=== PATIENT | male | born 1970 | race Caucasian/White ===

== ENCOUNTER 2016-11-09 09:12 | Observation (INO) ==
[2016-11-09] MEDS ORDERED: ASPIRIN PO STA (09:19)
[2016-11-09] MEDS ORDERED: ASPIRIN ONE (09:21)
--- NOTE | 2016-11-09 09:22 | EKG Report ---
Test Performed on : 11/09/2016 09:12:31 AM Test Reason : chest pain Blood Pressure : / mmHG Vent. Rate : 082 BPM Atrial Rate : 082 BPM P-R Int : 146 ms QRS Dur : 088 ms QT Int : 344 ms P-R-T Axes : 092 089 -42 degrees QTc Int : 401 ms Normal sinus rhythm. Septal infarct , age undetermined ST \T\ T wave abnormality, consider inferior ischemia Abnormal ECG When compared with ECG of 09-NOV-2016 09:10, (Unconfirmed) ST no longer depressed in Inferior leads Unconfirmed Result
[2016-11-09 09:27] LABS: MANUAL DIFF NEEDED? NO
[2016-11-09 09:33] LABS: BASO% 0.7 % (0.0-0.8); EOS# 0.42 X1000 (0.0-0.7); EOS% 3.3 % (0.0-10.0); HEMATOCRIT 47.7 % (42.0-52.0); HEMOGLOBIN 16.1 g/dL (14.0-18.0); IMM GRAN# 0.02 X1000 (0.0-0.04); IMM GRAN% 0.2 % (0.0-0.5); LYMPH# 4.62 X1000 (1.2-3.4); LYMPH% 36.1 % (20.5-51.1); MCH 29.7 PG (27-31); MCHC 33.8 g/dL (33-37); MONO% 7.8 % (1.7-9.3); MPV 12.1 FL (7.4-10.4); NEUT% 51.9 % (42.2-75.2); PLT 167 X1000 (130-400); RBC 5.42 XMIL (4.7-6.1)
[2016-11-09 09:41] LABS: INR 0.96 (0.86-1.15); PROTIME 13.1 Seconds (12.1-15.5)
[2016-11-09] MEDS ORDERED: ZOFRAN IV ONE (09:41)
[2016-11-09] MEDS ORDERED: MORPHINE IV ONE (09:41)
[2016-11-09 09:42] LABS: PTT PL 38.8 Seconds (22.6-43.9)
[2016-11-09 09:46] LABS: AGAP 13; ALBUMIN 4.7 g/dL (3.5-5.0); ALKALINE PHOSPHATASE 69 U/L (32-122); BUN 9 mg/dL (8-22); CALCIUM 9.4 mg/dL (8.8-10.2); CHLORIDE 99 mmol/L (98-107); CK PROFILE 187 U/L (24-204); COSMO 273; GOT 19 U/L (10-34); GPT 13 U/L (10-44); POTASSIUM 3.9 mmol/L (3.5-5.1); SODIUM 137 mmol/L (136-145); TCO2 26 mmol/L (25-35); TOTAL PROTEIN 8.1 g/dL (6.3-8.3)
--- NOTE | 2016-11-09 10:05 | Diag Imaging Result Document ---
PROCEDURE NAME: CHEST-2 VIEWS - 11/09/2016 PA AND LATERAL RADIOGRAPHS OF THE CHEST: COMPARISON: None available. FINDINGS: The lungs are grossly clear. There is no discrete pleural fluid collection or pneumothorax. The cardiomediastinal silhouette and upper airway are grossly unremarkable. IMPRESSION: No evidence of acute chest pathology.
[2016-11-09 11:15] LABS: URINE CULTURE PL NEEDED? NO
[2016-11-09 11:26] LABS: UR AMPHETAMINES QUAL NONE DETECTED (NONE DETECT); UR BARBITUATES QUAL NONE DETECTED (NONE DETECT); UR BENZODIAZEPIN QUAL NONE DETECTED (NONE DETECT); UR CANNABINOIDS QUAL PRESUMPTIVE POSITIVE (NONE DETECT); UR COCAINE QUAL NONE DETECTED (NONE DETECT); UR MDMA QUAL NONE DETECTED (NONE DETECT); UR METHADONE QUAL NONE DETECTED (NONE DETECT); UR METHAMPHETAMINE QUAL NONE DETECTED (NONE DETECT); UR OPIATES QUAL PRESUMPTIVE POSITIVE (NONE DETECT); UR OXYCODONE QUAL NONE DETECTED (NONE DETECT); UR PCP QUAL NONE DETECTED (NONE DETECT); UR TCA QUAL NONE DETECTED (NONE DETECT)
[2016-11-09 11:47] LABS: BILIRUBIN URINE NEGATIVE (NEGATIVE); BLOOD URINE NEGATIVE (NEGATIVE); CLARITY CLEAR (CLEAR); COLOR YELLOW; GLUCOSE URINE NEGATIVE (NEGATIVE); LEUKOCYTES URINE TRACE (NEGATIVE); NITRITE URINE NEGATIVE (NEGATIVE); PROTEIN URINE NEGATIVE (NEGATIVE); SP GRAVITY URINE 1.005; UROBILINOGEN URINE NORMAL
[2016-11-09 11:48] LABS: URINE EPITHELIAL CELLS <10 /HPF (<10); URINE SOURCE CLEAN CATCH; URINE WBC <10 /HPF (<10)
--- NOTE | 2016-11-09 12:21 | EKG Report ---
Test Performed on : 11/09/2016 12:05:06 PM Test Reason : CP Blood Pressure : / mmHG Vent. Rate : 076 BPM Atrial Rate : 076 BPM P-R Int : 156 ms QRS Dur : 092 ms QT Int : 366 ms P-R-T Axes : 088 088 036 degrees QTc Int : 411 ms Normal sinus rhythm. Normal ECG When compared with ECG of 09-NOV-2016 09:12, (Unconfirmed) Nonspecific T wave abnormality has replaced inverted T waves in Inferior leads Unconfirmed Result
--- NOTE | 2016-11-09 12:31 | Diag Imaging Result Document ---
PROCEDURE NAME: US GB < RUQ (LIMITED) - 11/09/2016 RIGHT UPPER QUADRANT ULTRASOUND: FINDINGS: The pancreas, aorta, and inferior vena cava are within normal limits. The liver is unremarkable, and there is antegrade flow in the portal vein. The common bile duct measures 3 mm. The gallbladder is clear and nontender. The right kidney is without evidence of hydronephrosis, mass, or stones. There are no abnormal fluid collections. IMPRESSION: No evidence of acute disease.
--- NOTE | 2016-11-09 12:33 | PROVIDER DOCUMENTATION ---
This chart was entered by Kenton Mendes Scribe, acting as scribe for Audrey Corona MD. HPI-Chest Pain - General Chief Complaint: Chest Pain Stated Complaint: CHEST PAIN Time Seen by Provider: 11/09/16 09:27 Source: patient Allergies/Adverse Reactions: Patient Allergies Allergy/AdvReac Type Severity Reaction Status Date / Time No Known Allergies Allergy Verified 11/09/16 09:23 - History of Present Illness-CP Nature of Presenting Problem: patient is a 46 y/o M that presents to the ER with chest pain ( across whole chest) that began [address] to [address] [employer] while at work. He describes the pain as sharp in nature. worse with breathing and palpation. No nausea/vomiting or diaphoresis. Patient does report some upper quad pain right sided. Still smokes daily. He denies any illegal drug use. Family history of CAD over 55 y/o. Location: reports: central (across chest) Chest Pain Radiation: reports: no radiation Quality of Pain: reports: sharp Severity in ED: mild, moderate Onset/Duration: abrupt, 1/2 hour ago Timing: still present, constant Context/Activities at Onset: reports: light activity Modifying Factors: worse with: breathing, palpation Associated Symptoms: reports: abdominal pain, shortness of breath. denies: back pain, diaphoresis, dizziness, fatigue, nausea, vomiting Nitro Today/Relief: no nitro taken today Aspirin Treatment Today: 325 mg x 1, provided by ED Prior Chest Pain/Cardiac Workup: reports: no prior chest pain, no prior cardiac workup Similar Symptoms Previously?: No Recently Seen Here or By Another Healthcare Provider: No Review of Systems - Adult - REVIEW OF SYSTEMS - ADULT Constitutional: denies: chills, fever Eyes: denies: decreased vision, blurred vision, double vision Ears, Nose, Mouth & Throat: denies: ear discharge, ear pain, sinus problem, throat pain Cardiovascular: reports: chest pain. denies: palpitations, syncope Respiratory: reports: shortness of breath. denies: cough, wheezing Gastrointestinal: reports: abdominal pain. denies: diarrhea, nausea, vomiting Genitourinary: reports: no symptoms reported Musculoskeletal: denies: back pain, joint pain, neck pain Integumentary: reports: no symptoms reported Neurological: reports: no symptoms reported Psychiatric: reports: no symptoms reported Endocrine: reports: no symptoms reported Hematologic/Lymphatic: reports: no symptoms reported Allergic/Immunologic: reports: no symptoms reported All Other Systems: Reviewed and Negative Past History - Adult - PAST MEDICAL HISTORY-ADULT Review of Records: reports: Old Records Reviewed, Nursing Assessment Review, Medications Reviewed - PRIOR SURGERIES/PROCEDURES Surgical/Procedure History: reports: reviewed, not pertinent - IMMUNIZATION STATUS Childhood Immunizations: See Nurse Assessment Flu Vaccine: See Nurse Assessment - FAMILY HISTORY Family History: CAD over 55 yo - SOCIAL HISTORY Smoking: cigarettes, greater than 1 pack/day Living Situation: family Physical Exam-General - PHYSICAL EXAM-ADULT Initial Vital Signs Reviewed: Yes - CONSTITUTIONAL General Appearance: alert, mild distress, anxious - EYES Eyes: PERRL/EOMI, pink conjunctivae - HEAD, EARS, NOSE, MOUTH & THROAT HENMT: normocephalic/atraumatic, moist mucous membranes, normal ENT inspection - NECK Neck: full range of motion, normal inspection. negative: lymphadenopathy - RESPIRATORY Respiratory: no respiratory distress, no accessory muscle use, decreased breath sounds (right sided slightly), other (tenderness with palpation to chest wall anterior) - CARDIOVASCULAR Cardiovascular: regular rate, rhythm, no edema, no murmur - GASTROINTESTINAL (ABDOMEN) Abdominal Exam: normal bowel sounds, soft, no organomegaly, no pulsatile mass, tenderness (RUQ) - MUSCULOSKELETAL Back Exam: no CVA tenderness, no vertebral tenderness Extremity: normal range of motion, normal inspection, no pedal edema, normal capillary refill, pelvis stable - SKIN Integumentary: normal color, warm/dry - NEUROLOGIC Neurologic: grossly normal, no motor/sensory deficits - PSYCHIATRIC Psych/Mental Status: normal mood/affect, normal thought content, normal thought process, oriented x 3 Progress - PLAN OF CARE/RESULTS Progress/Plan/Lab Results: Vital Signs - 8 hr 11/09/16 09:13 11/09/16 09:29 11/09/16 11:37 Pulse Rate 92 H 79 76 Respiratory Rate 23 12 14 Blood Pressure 157/128 139/88 145/106 O2 Sat by Pulse Oximetry 100 100 100 Laboratory Results - last 24 hr 11/09/16 11/09/16 11/09/16 09:20 09:20 09:20 WBC RBC Hgb Hct MCV MCH MCHC RDW Std Deviation Plt Count MPV Immature Gran % (Auto) Neut % (Auto) Lymph % (Auto) Trigg % (Auto) Eos % (Auto) Baso % (Auto) Immature Gran # (Auto) Neut # (Auto) Lymph # (Auto) Trigg # (Auto) Eos # (Auto) Baso # (Auto) PT INR APTT (Factor Assay) D-Dimer Sodium 137 Potassium 3.9 Chloride 99 Carbon Dioxide 26 Anion Gap 13 BUN 9 Creatinine 0.9 Estimated GFR/1.73 m2 > 60 BUN/Creatinine Ratio 10 Glucose 100 Calculated Osmolality 273 Calcium 9.4 Total Bilirubin 0.40 AST 19 ALT 13 Alkaline Phosphatase 69 Creatine Kinase 187 Troponin T < 0.010 Nbo-O-Apwoqtgzinq Pept 29 Total Protein 8.1 Albumin 4.7 Globulin 3.0 Albumin/Globulin Ratio 1.0 Lipase Urine Source Urine Color Urine Clarity Urine pH Ur Specific [place] Urine Protein Urine Ketones Urine Blood Urine Nitrite Urine Bilirubin Urine Urobilinogen Urine Microscopic RBC Urine WBC Urine Microscopic WBC Ur Epithelial Cells Urine Glucose Urine Opiates Screen Ur Oxycodone Screen Urine Methadone Screen Ur Barbituates Screen Ur Tricyclics Screen Ur Phencyclidine Scrn Ur Amphetamines Screen U Methamphetamines Scrn Urine MDMA Screen U Benzodiazepines Scrn Urine Cocaine Screen U Cannabinoids Screen 11/09/16 11/09/16 11/09/16 09:20 09:20 09:20 WBC 12.81 H RBC 5.42 Hgb 16.1 Hct 47.7 MCV 88.0 MCH 29.7 MCHC 33.8 RDW Std Deviation 14.2 Plt Count 167 MPV 12.1 H Immature Gran % (Auto) 0.2 Neut % (Auto) 51.9 Lymph % (Auto) 36.1 Trigg % (Auto) 7.8 Eos % (Auto) 3.3 Baso % (Auto) 0.7 Immature Gran # (Auto) 0.02 Neut # (Auto) 6.66 H Lymph # (Auto) 4.62 H Trigg # (Auto) 1.00 H Eos # (Auto) 0.42 Baso # (Auto) 0.09 PT 13.1 INR 0.96 APTT (Factor Assay) 38.8 D-Dimer 0.22 Sodium Potassium Chloride Carbon Dioxide Anion Gap BUN Creatinine Estimated GFR/1.73 m2 BUN/Creatinine Ratio Glucose Calculated Osmolality Calcium Total Bilirubin AST ALT Alkaline Phosphatase Creatine Kinase Troponin T Abk-M-Tzcfowvyhot Pept Total Protein Albumin Globulin Albumin/Globulin Ratio Lipase Urine Source Urine Color Urine Clarity Urine pH Ur Specific [place] Urine Protein Urine Ketones Urine Blood Urine Nitrite Urine Bilirubin Urine Urobilinogen Urine Microscopic RBC Urine WBC Urine Microscopic WBC Ur Epithelial Cells Urine Glucose Urine Opiates Screen Ur Oxycodone Screen Urine Methadone Screen Ur Barbituates Screen Ur Tricyclics Screen Ur Phencyclidine Scrn Ur Amphetamines Screen U Methamphetamines Scrn Urine MDMA Screen U Benzodiazepines Scrn Urine Cocaine Screen U Cannabinoids Screen 11/09/16 11/09/16 11/09/16 09:20 10:55 10:55 WBC RBC Hgb Hct MCV MCH MCHC RDW Std Deviation Plt Count MPV Immature Gran % (Auto) Neut % (Auto) Lymph % (Auto) Trigg % (Auto) Eos % (Auto) Baso % (Auto) Immature Gran # (Auto) Neut # (Auto) Lymph # (Auto) Trigg # (Auto) Eos # (Auto) Baso # (Auto) PT INR APTT (Factor Assay) D-Dimer Sodium Potassium Chloride Carbon Dioxide Anion Gap BUN Creatinine Estimated GFR/1.73 m2 BUN/Creatinine Ratio Glucose Calculated Osmolality Calcium Total Bilirubin AST ALT Alkaline Phosphatase Creatine Kinase Troponin T Yec-Z-Qavluvamvzc Pept Total Protein Albumin Globulin Albumin/Globulin Ratio Lipase 40 Urine Source CLEAN CATCH Urine Color YELLOW Urine Clarity CLEAR Urine pH 7.0 Ur Specific [place] 1.005 Urine Protein NEGATIVE Urine Ketones TRACE Urine Blood NEGATIVE Urine Nitrite NEGATIVE Urine Bilirubin NEGATIVE Urine Urobilinogen NORMAL Urine Microscopic RBC Not Reportable Urine WBC TRACE A Urine Microscopic WBC <10 Ur Epithelial Cells <10 Urine Glucose NEGATIVE Urine Opiates Screen PRESUMPTIVE POSITIVE A Ur Oxycodone Screen NONE DETECTED Urine Methadone Screen NONE DETECTED Ur Barbituates Screen NONE DETECTED Ur Tricyclics Screen NONE DETECTED Ur Phencyclidine Scrn NONE DETECTED Ur Amphetamines Screen NONE DETECTED U Methamphetamines Scrn NONE DETECTED Urine MDMA Screen NONE DETECTED U Benzodiazepines Scrn NONE DETECTED Urine Cocaine Screen NONE DETECTED U Cannabinoids Screen PRESUMPTIVE POSITIVE A 11/09/16 11/09/16 11:05 11:05 WBC RBC Hgb Hct MCV MCH MCHC RDW Std Deviation Plt Count MPV Immature Gran % (Auto) Neut % (Auto) Lymph % (Auto) Trigg % (Auto) Eos % (Auto) Baso % (Auto) Immature Gran # (Auto) Neut # (Auto) Lymph # (Auto) Trigg # (Auto) Eos # (Auto) Baso # (Auto) PT INR APTT (Factor Assay) D-Dimer Sodium Potassium Chloride Carbon Dioxide Anion Gap BUN Creatinine Estimated GFR/1.73 m2 BUN/Creatinine Ratio Glucose Calculated Osmolality Calcium Total Bilirubin AST ALT Alkaline Phosphatase Creatine Kinase 162 Troponin T < 0.010 Miu-G-Denqucaeyqm Pept Total Protein Albumin Globulin Albumin/Globulin Ratio Lipase Urine Source Urine Color Urine Clarity Urine pH Ur Specific [place] Urine Protein Urine Ketones Urine Blood Urine Nitrite Urine Bilirubin Urine Urobilinogen Urine Microscopic RBC Urine WBC Urine Microscopic WBC Ur Epithelial Cells Urine Glucose Urine Opiates Screen Ur Oxycodone Screen Urine Methadone Screen Ur Barbituates Screen Ur Tricyclics Screen Ur Phencyclidine Scrn Ur Amphetamines Screen U Methamphetamines Scrn Urine MDMA Screen U Benzodiazepines Scrn Urine Cocaine Screen U Cannabinoids Screen Orders Category Date Time Status Admit - [facility] Routine AdmDCTranf 11/09/16 12:29 Ordered Call Admitting on Arrival AT ADMISSION Care 11/09/16 12:30 Active CHEST-2 VIEWS [RAD] Stat Exams 11/09/16 09:19 Draft US GB < RUQ (LIMITED) [US] Stat Exams 11/09/16 10:53 Draft CBC WITH ELECTRONIC DIFF [HEME] Stat Lab 11/09/16 09:20 Completed CK PROFILE [SP CHEM] Stat Lab 11/09/16 09:20 Completed CK PROFILE [SP CHEM] Stat Lab 11/09/16 11:05 Completed COMPREHENSIVE METABOLIC PANEL [CHEM] Stat Lab 11/09/16 09:20 Completed D-DIMER PL [COAG] Stat Lab 11/09/16 09:20 Completed LIPASE [CHEM] Stat Lab 11/09/16 09:20 Completed PRO B-NATRIURETIC PEPTIDE Stat Lab 11/09/16 09:20 Completed PROTIME WITH INR PL [COAG] Stat Lab 11/09/16 09:[address] [COAG] Stat Lab 11/09/16 09:20 Completed TROPONIN T Stat Lab 11/09/16 09:20 Completed TROPONIN T Stat Lab 11/09/16 11:05 Completed UDS [URINE DRUG SCREEN PL] Stat Lab 11/09/16 10:[address] W/POSS RFLX CULT [URINALYSIS] Stat Lab 11/09/16 10:55 Completed Aspirin Med 11/09/16 09:21 Discontinued 325 mg .ROUTE .STK-MED ONE Aspirin Med 11/09/16 09:19 Discontinued 325 mg PO STAT STA Morphine Med 11/09/16 09:41 Discontinued 4 mg IV NOW ONE Ondansetron [Zofran] Med 11/09/16 09:41 Discontinued 4 mg IV NOW ONE Telemetry [OM.EQ] Routine Oth 11/09/16 12:29 Active EKG [EKG] Stat Ther 11/09/16 09:19 Draft EKG [EKG] Stat Ther 11/09/16 12:03 Draft 1053-u/s gb and second set of cardiac ordered Vital Signs Pulse Resp BP Pulse Ox 11/09/16 11:37 76 14 145/106 100 11/09/16 09:29 79 12 139/88 100 11/09/16 09:13 92 H 23 157/128 100 No Known Allergies Allergy (Verified 11/09/16 09:23) Laboratory 11/09/16 11/09/16 11/09/16 11:05 11:05 10:55 WBC RBC Hgb Hct MCV MCH MCHC RDW Std Deviation Plt Count MPV Immature Gran % (Auto) Neut % (Auto) Lymph % (Auto) Trigg % (Auto) Eos % (Auto) Baso % (Auto) Immature Gran # (Auto) Neut # (Auto) Lymph # (Auto) Trigg # (Auto) Eos # (Auto) Baso # (Auto) PT INR APTT (Factor Assay) D-Dimer Sodium Potassium Chloride Carbon Dioxide Anion Gap BUN Creatinine Estimated GFR/1.73 m2 BUN/Creatinine Ratio Glucose Calculated Osmolality Calcium Total Bilirubin AST ALT Alkaline Phosphatase Creatine Kinase 162 Troponin T < 0.010 Jeq-A-Mtdcjlllmtj Pept Total Protein Albumin Globulin Albumin/Globulin Ratio Lipase Urine Source Urine Color Urine Clarity Urine pH Ur Specific [place] Urine Protein Urine Ketones Urine Blood Urine Nitrite Urine Bilirubin Urine Urobilinogen Urine Microscopic RBC Urine WBC Urine Microscopic WBC Ur Epithelial Cells Urine Glucose Urine Opiates Screen PRESUMPTIVE POSITIVE A Ur Oxycodone Screen NONE DETECTED Urine Methadone Screen NONE DETECTED Ur Barbituates Screen NONE DETECTED Ur Tricyclics Screen NONE DETECTED Ur Phencyclidine Scrn NONE DETECTED Ur Amphetamines Screen NONE DETECTED U Methamphetamines Scrn NONE DETECTED Urine MDMA Screen NONE DETECTED U Benzodiazepines Scrn NONE DETECTED Urine Cocaine Screen NONE DETECTED U Cannabinoids Screen PRESUMPTIVE POSITIVE A 11/09/16 11/09/16 11/09/16 10:55 09:20 09:20 WBC RBC Hgb Hct MCV MCH MCHC RDW Std Deviation Plt Count MPV Immature Gran % (Auto) Neut % (Auto) Lymph % (Auto) Trigg % (Auto) Eos % (Auto) Baso % (Auto) Immature Gran # (Auto) Neut # (Auto) Lymph # (Auto) Trigg # (Auto) Eos # (Auto) Baso # (Auto) PT INR APTT (Factor Assay) D-Dimer 0.22 Sodium Potassium Chloride Carbon Dioxide Anion Gap BUN Creatinine Estimated GFR/1.73 m2 BUN/Creatinine Ratio Glucose Calculated Osmolality Calcium Total Bilirubin AST ALT Alkaline Phosphatase Creatine Kinase Troponin T Vmo-B-Yacvvnpcjdo Pept Total Protein Albumin Globulin Albumin/Globulin Ratio Lipase 40 Urine Source CLEAN CATCH Urine Color YELLOW Urine Clarity CLEAR Urine pH 7.0 Ur Specific [place] 1.005 Urine Protein NEGATIVE Urine Ketones TRACE Urine Blood NEGATIVE Urine Nitrite NEGATIVE Urine Bilirubin NEGATIVE Urine Urobilinogen NORMAL Urine Microscopic RBC Not Reportable Urine WBC TRACE A Urine Microscopic WBC <10 Ur Epithelial Cells <10 Urine Glucose NEGATIVE Urine Opiates Screen Ur Oxycodone Screen Urine Methadone Screen Ur Barbituates Screen Ur Tricyclics Screen Ur Phencyclidine Scrn Ur Amphetamines Screen U Methamphetamines Scrn Urine MDMA Screen U Benzodiazepines Scrn Urine Cocaine Screen U Cannabinoids Screen 11/09/16 11/09/16 11/09/16 09:20 09:20 09:20 WBC 12.81 H RBC 5.42 Hgb 16.1 Hct 47.7 MCV 88.0 MCH 29.7 MCHC 33.8 RDW Std Deviation 14.2 Plt Count 167 MPV 12.1 H Immature Gran % (Auto) 0.2 Neut % (Auto) 51.9 Lymph % (Auto) 36.1 Trigg % (Auto) 7.8 Eos % (Auto) 3.3 Baso % (Auto) 0.7 Immature Gran # (Auto) 0.02 Neut # (Auto) 6.66 H Lymph # (Auto) 4.62 H Trigg # (Auto) 1.00 H Eos # (Auto) 0.42 Baso # (Auto) 0.09 PT 13.1 INR 0.96 APTT (Factor Assay) 38.8 D-Dimer Sodium Potassium Chloride Carbon Dioxide Anion Gap BUN Creatinine Estimated GFR/1.73 m2 BUN/Creatinine Ratio Glucose Calculated Osmolality Calcium Total Bilirubin AST ALT Alkaline Phosphatase Creatine Kinase Troponin T Xzt-B-Vsbcmxdyphm Pept 29 Total Protein Albumin Globulin Albumin/Globulin Ratio Lipase Urine Source Urine Color Urine Clarity Urine pH Ur Specific [place] Urine Protein Urine Ketones Urine Blood Urine Nitrite Urine Bilirubin Urine Urobilinogen Urine Microscopic RBC Urine WBC Urine Microscopic WBC Ur Epithelial Cells Urine Glucose Urine Opiates Screen Ur Oxycodone Screen Urine Methadone Screen Ur Barbituates Screen Ur Tricyclics Screen Ur Phencyclidine Scrn Ur Amphetamines Screen U Methamphetamines Scrn Urine MDMA Screen U Benzodiazepines Scrn Urine Cocaine Screen U Cannabinoids Screen 11/09/16 11/09/16 09:20 09:20 WBC RBC Hgb Hct MCV MCH MCHC RDW Std Deviation Plt Count MPV Immature Gran % (Auto) Neut % (Auto) Lymph % (Auto) Trigg % (Auto) Eos % (Auto) Baso % (Auto) Immature Gran # (Auto) Neut # (Auto) Lymph # (Auto) Trigg # (Auto) Eos # (Auto) Baso # (Auto) PT INR APTT (Factor Assay) D-Dimer Sodium 137 Potassium 3.9 Chloride 99 Carbon Dioxide 26 Anion Gap 13 BUN 9 Creatinine 0.9 Estimated GFR/1.73 m2 > 60 BUN/Creatinine Ratio 10 Glucose 100 Calculated Osmolality 273 Calcium 9.4 Total Bilirubin 0.40 AST 19 ALT 13 Alkaline Phosphatase 69 Creatine Kinase 187 Troponin T < 0.010 Zwu-D-Omijytzooqo Pept Total Protein 8.1 Albumin 4.7 Globulin 3.0 Albumin/Globulin Ratio 1.0 Lipase Urine Source Urine Color Urine Clarity Urine pH Ur Specific [place] Urine Protein Urine Ketones Urine Blood Urine Nitrite Urine Bilirubin Urine Urobilinogen Urine Microscopic RBC Urine WBC Urine Microscopic WBC Ur Epithelial Cells Urine Glucose Urine Opiates Screen Ur Oxycodone Screen Urine Methadone Screen Ur Barbituates Screen Ur Tricyclics Screen Ur Phencyclidine Scrn Ur Amphetamines Screen U Methamphetamines Scrn Urine MDMA Screen U Benzodiazepines Scrn Urine Cocaine Screen U Cannabinoids Screen Orders Category Date Time Status CHEST-2 VIEWS [RAD] Stat Exams 11/09/16 09:19 Draft US GB < RUQ (LIMITED) [US] Stat Exams 11/09/16 10:53 Taken CBC WITH ELECTRONIC DIFF [HEME] Stat Lab 11/09/16 09:20 Completed CK PROFILE [SP CHEM] Stat Lab 11/09/16 09:20 Completed CK PROFILE [SP CHEM] Stat Lab 11/09/16 11:05 Completed COMPREHENSIVE METABOLIC PANEL [CHEM] Stat Lab 11/09/16 09:20 Completed D-DIMER PL [COAG] Stat Lab 11/09/16 09:20 Completed LIPASE [CHEM] Stat Lab 11/09/16 09:20 Completed PRO B-NATRIURETIC PEPTIDE Stat Lab 11/09/16 09:20 Completed PROTIME WITH INR PL [COAG] Stat Lab 11/09/16 09:[address] [COAG] Stat Lab 11/09/16 09:20 Completed TROPONIN T Stat Lab 11/09/16 09:20 Completed TROPONIN T Stat Lab 11/09/16 11:05 Completed UDS [URINE DRUG SCREEN PL] Stat Lab 11/09/16 10:[address] W/POSS RFLX CULT [URINALYSIS] Stat Lab 11/09/16 10:55 Completed Aspirin Med 11/09/16 09:21 Discontinued 325 mg .ROUTE .STK-MED ONE Aspirin Med 11/09/16 09:19 Discontinued 325 mg PO STAT STA Morphine Med 11/09/16 09:41 Discontinued 4 mg IV NOW ONE Ondansetron [Zofran] Med 11/09/16 09:41 Discontinued 4 mg IV NOW ONE EKG [EKG] Stat Ther 11/09/16 09:19 Draft pt will be d/c home f/u with pcp and cardiology, pt was clinically stable, understood instructions and results Result Diagrams: 11/09/16 09:20 11/09/16 09:20 - REASSESSMENT Reassessment #1 Time Reassessed: 11:55 Status: improving Reassessment Comment: feeling better, second ekg will be performed Reassessment #2 Time Reassessed: 12:32 Status: improving (Consulted Dr. 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 cardiology, suggested admit to [facility].) - EKG 1 Time of EKG reading by physician:: 09:12 EKG Read and Signed by:: Audrey Corona EKG Interpretation (*Must complete 3 of following elements*): Abnormal Rate: 82 Rhythm: NSR [place]: normal QRS: normal ME Interval: normal ST Wave: non-specific ST changes (t wave inversion) 2 Time of EKG reading by physician:: 12:05 EKG Read and Signed by:: Audrey Corona EKG Interpretation (*Must complete 3 of following elements*): Abnormal Rate: 76 Rhythm: NSR [place]: normal QRS: normal ME Interval: normal ST Wave: non-specific ST changes (t-wave inversion) Prior EKG Comparison: changes noted (improved from first EKG TODAY) - XRAY 1 XRAY Study: Chest Impression: Normal XRAY Interpretation: nad per radiology - ULTRASOUND (By Radiology) 1 US Study: Gallbladder Impression: Normal US Results: nad per - CONSULTS/PCP/HOSPITALIST Notification #1 *Consult/PCP/Hospitalist*: Dr.Penot De La Fuente Discussed: 12:16 Reason/Comments: Request call to telephone technician, will admit to hospital Consult Disposition: Admit #2 Consult: Dr.Denney De La Fuente Discussed: 12:27 Reason/Comments: admit to [facility] Consult Disposition: other Departure - Departure Time of Disposition Decision: 12:20 DIAGNOSIS: Chest pain in adult, Abnormal EKG Disposition: ADMITTED INPATIENT 09 Certified Medical Emergency: Emergent Condition: Stable Additional Freetext Instructions: ED Follow Up Instructions: You have been treated by a care provider in the Emergency Department. These instructions are being provided to you so you can have an understanding of how to care for yourself upon discharge. Upon discharge from the Emergency Department, you are responsible for making arrangements for follow-up care by a physician of your choice. Take all prescribed medications as directed. Return to the Emergency Department immediately for any new or worsening symptoms. You may call the Physician Referral phone number at [phone] to obtain a list of Physicians who are taking new patients. Referrals and Follow-Ups: None,PCP [Primary Care Provider] - - Critical Care Note This patient required my direct personal management.: No This chart was documented by the indicated scribe, (Kenton Mendes, [place]) and accurately reflects the services I performed and decisions made by me, Audrey Corona MD, as attested by the provider's signature.
[2016-11-09] MEDS ORDERED: NITROGLYCERIN TOP ONE ×2 (13:44→17:19)
[2016-11-09] MEDS ORDERED: NITROGLYCERIN SL PRN (17:19)
[2016-11-09] MEDS ORDERED: ZOFRAN IV PRN (17:19)
[2016-11-09] MEDS ORDERED: MORPHINE IV PRN (17:19)
[2016-11-09] MEDS ORDERED: TYLENOL PO PRN (17:19)
--- NOTE | 2016-11-09 17:26 | HISTORY AND PHYSICAL ---
HISTORY OF PRESENT ILLNESS: A 46-year-old, white male, with no significant medical history except for MS reportedly, who came in with chest pain starting earlier today. He was at work. He works for [employer] I think. 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 He started having sharp left- sided chest pain, worsening in intensity. Sometimes was pressure-like as well, radiating to back and up into the neck. Worse with exertion and improved with rest. He has had this off and on for about a week, but it was most intense today. Workup in the ER did reveal an EKG, which showed some abnormalities in his inferior leads and some early ST changes in the anterior leads. In any case, the patient is clinically improved with morphine. PAST MEDICAL HISTORY: MS alone. PAST SURGICAL HISTORY: No major issues. FAMILY HISTORY: Father had CAD, multiple issues and had a CABG, but he did not start having issues until his early 60s. Twin sister, mother and father all have diabetes. ALLERGIES: No known drug allergies and patient not allergic to shellfish or seafood. SOCIAL HISTORY: He does smoke, probably up to a pack a day. REVIEW OF SYSTEMS: Otherwise negative times a 10 point review of systems. PHYSICAL EXAMINATION: VITAL SIGNS: Blood pressure 145/106, heart rate is 76, respiratory rate is 14, temperature was afebrile. GENERAL: A well-developed male, in no acute distress. HEAD: Exam was normocephalic, atraumatic. EYES: Pupils equal, round, reactive to light. Extraocular movements were intact. EAR/NOSE/THROAT: Exam, moist mucous membranes. NECK: Supple. CARDIOVASCULAR EXAM: Regular rate and rhythm. No murmurs, gallops, or rubs. PULMONARY: Exam bilateral breath sounds. Clear to auscultation. GI: Soft, nontender, nondistended. Bowel sounds are positive. EXTREMITIES: No clubbing or cyanosis. LYMPHATICS: No peripheral edema. NEUROLOGICAL: Nonfocal. LABORATORY DATA: Unremarkable CMP. Coags okay. CBC okay. White count up a little bit to 12.8. Urine clear. UDS was positive for cannabinoids and opiates. EKG showed an ST depression in V2 through V4 maybe some repolarization issues versus ischemic issues. ASSESSMENT: A 46-year-old male with history of likely underlying hypertension and multiple sclerosis, presenting with chest pain. 1. Chest pain. We will monitor on telemetry. Check serial isoenzymes. Obtain echo. Cardiology consult because he has got dynamic EKG changes. They will decide about invasive versus noninvasive imaging subsequently. Continue morphine, nitroglycerin to control his pain and follow clinically. 2. Hypertension. We will initiate Lopressor, if she tolerates, then follow. 3. Multiple sclerosis, appears to be controlled. This is a service admission. cc: Jeffry Sheridan MD
[2016-11-09] MEDS: LOVENOX SUBQ SCH (18:28)
[2016-11-09] MEDS: LOPRESSOR PO SCH (18:28)
[2016-11-10] MEDS: LOPRESSOR PO SCH ×4 (00:52→18:26)
[2016-11-10] MEDS ORDERED: PRILOSEC PO SCH (07:00)
[2016-11-10 07:19] LABS: HEMATOCRIT 44.6 % (42.0-52.0); HEMOGLOBIN 15.1 g/dL (14.0-18.0); MCH 30.4 PG (27-31); MCHC 33.9 g/dL (33-37); MCV 89.7 FL (81-99); MPV 12.2 FL (7.4-10.4); RBC 4.97 XMIL (4.7-6.1)
[2016-11-10 07:38] LABS: AGAP 13; BUN 13 mg/dL (8-22); CALCIUM 9.2 mg/dL (8.8-10.2); CHLORIDE 102 mmol/L (98-107); COSMO 279; POTASSIUM 4.4 mmol/L (3.5-5.1); SODIUM 140 mmol/L (136-145); TCO2 25 mmol/L (25-35)
[2016-11-10] MEDS ORDERED: ASPIRIN PO SCH (09:00)
--- NOTE | 2016-11-10 09:17 | CONSULTATION ---
DATE OF CONSULTATION: 11/10/2016 REASON FOR CONSULTATION: Cardiology consulted for chest pain. HISTORY OF PRESENT ILLNESS: Mr. Jose Luis Nash is a 46-year-old gentleman who is admitted with chest discomfort. He works for [employer], I think does not do much physical labor. He had sharp left-sided chest discomfort with increasing intensity, radiating to the right side of the chest and to the neck as well. Symptoms are worsened with exertion. He came to the emergency room. Electrocardiogram revealed nonspecific ST-T changes. The patient was admitted. Prior to this episode he did not have any chest pain. He is smoker, smokes about a pack of cigarettes a day. There is no orthopnea or paroxysmal nocturnal dyspnea. PAST MEDICAL HISTORY: There is no history of hypertension, diabetes. History of multiple sclerosis REVIEW OF SYSTEMS: A 14 point review of system was done. GI System: There is no history of nausea, vomiting, diarrhea. There is no history of hematemesis or melena. Central nervous system: No focal weakness to suggest a CVA or TIA. system: There is no dysuria or hematuria. Respiratory System: There is no cough, expectoration, hemoptysis. Endocrine System: Stable. PAST MEDICAL HISTORY: As above. FAMILY HISTORY: Father had coronary artery disease and bypass grafting in his 60s. Family history of diabetes present. ALLERGIES: Is not known to be allergic to any medication. SOCIAL HISTORY: There is no history of alcohol abuse. PHYSICAL EXAMINATION: Vital Signs: Blood pressure when he came in was 145/100. At the time of my examination, blood pressure is 103/69. Cardiovascular System: Normal jugular venous pressure. There is no thyromegaly. No carotid bruit. First and second heart sounds were heard. There is no S3, S4, or gallop. Respiratory System: Normal air entry. There are no crepitations or rhonchi. Abdomen: Soft, nontender. There is no guarding or rigidity. Bowel sounds were heard. Central nervous system: Alert and oriented. He was moving all 4 extremities. Extremities: Examination of extremities revealed no pedal edema. HEENT: Atraumatic, normocephalic. Pupils are equal and reacting to light. DIAGNOSTIC STUDIES: Electrocardiogram revealed normal sinus rhythm, nonspecific ST-T changes. LABORATORY EXAMINATION: Revealed a sodium 140, potassium 4.4, BUN 13, creatinine 0.8. He was ruled out for myocardial infarction by cardiac enzymes. ASSESSMENT AND PLAN: Mr. Jose Luis Nash is a 46-year-old gentleman with a history of multiple sclerosis, comes with complaints of chest pain as described above. He has been ruled out for myocardial infarction by cardiac enzymes. He has strong family history of coronary artery disease and he is smoker. Given this and his symptoms, I have recommended that he undergo a Cardiolite stress test and an echocardiogram. We will set up for these tests today. He has been started on aspirin and Lopressor. I have not made any changes. In addition, his blood pressure was elevated when he came to the emergency room. Currently it is under control. Thank you for the consult. We will follow the hospital course. cc: Gilberto Almanzar MD
--- NOTE | 2016-11-10 14:53 | PROGRESS NOTE ---
DATE: 11/10/2016 SUBJECTIVE: Patient reports feeling fine. Denies any chest pain or shortness of breath. OBJECTIVE: Vital Signs: Temperature 97.6 degrees, heart rate 78, respiratory rate 17, blood pressure 103/69, O2 saturation 99% on room air. General Examination: This is a 46-year-old male, lying in bed in no acute distress. HEENT: Head is normocephalic, atraumatic. Anicteric sclerae and pale conjunctivae. Mucous membranes moist. Neck: Supple. No JVD noted. No carotid bruits. No lymphadenopathy. No thyromegaly. Cardiovascular: S1 and S2 heard. No murmurs, gallops, or rubs. Regular rate and rhythm. Respiratory: Clear bilaterally to auscultation. No work of breathing or using accessory muscles. Abdomen: Soft, nontender to palpation. Bowel sounds present. No organomegaly. Extremities: No clubbing, cyanosis, or edema. Peripheral pulses present in both legs. Neurological: Patient is alert and oriented x3. Able to move all 4 extremities. Cranial nerves 2-12 grossly normal. LABORATORY DATA: Reviewed. ASSESSMENT AND PLAN: 1. Chest pain. Patient has been evaluated by Cardiology and they think it is necessary to do a stress test, which he underwent today. We are going to follow the results of that examination. 2. Hypertension. Blood pressure is under control. We will continue indefinitely with the same management. 3. Multiple sclerosis. Apparently, is well controlled. cc: Molina Han MD
[2016-11-10 15:42] VITALS: BP 124/77
--- NOTE | 2016-11-10 16:56 | Diag Imaging Result Document ---
PROCEDURE NAME: MYOCARDIAL PERF SCAN, STR/REST - 11/10/2016 SUMMARY: The patient was administered 12.5 millicuries of technetium-99m labeled sestamibi, after which resting cardiac images were obtained. The patient was subsequently exercised on a treadmill according to a Harish protocol and exercised for a total of 10 minutes 1 second achieving a maximal workload of stage IV and 11.6 METS. With exercise, the heart increased from 67 beats per minute to 157 beats per minute while representing 91% of maximum age-predicted heart rate. The blood pressure increased from 128/73 to 180/80. With exercise, the patient denied chest discomfort. At peak exercise, the patient was administered 35.7 millicuries technetium-99m sestamibi, after which gated stress cardiac images were obtained. Baseline ECG demonstrated sinus rhythm and left hypertrophy with repolarization abnormality. With exercise, baseline ST and T-wave abnormality did not change significantly. SPECT images were reconstructed in the short, horizontal, vertical long axis. With exercise, baseline ST and T-wave abnormality became more prominent and returned to preexercise appearance in recovery. SPECT images were reconstructed in the short, horizontal, and vertical long axis. Review of these images demonstrated no scintigraphic evidence of inducible myocardial ischemia or infarct. Gated images demonstrate a calculated left ventricular ejection fraction of 73% with symmetrical wall motion/thickening. CONCLUSIONS: 1. Good aerobic capacity. Target heart rate achieved. 2. Clinically negative for chest pain. 3. Electrocardiographically nondiagnostic due to baseline ST and T-wave abnormality. 4. Normal exercise sestamibi images. cc: Albin Dumont MD
[2016-11-10] MEDS: LOVENOX SUBQ SCH (18:26)
--- NOTE | 2016-11-10 19:55 | ECHO REPORT ---
ORDER DATE: 11/09/2016 ECHOCARDIOGRAM: MEASUREMENTS: Left ventricular end-diastolic 4.0, end systolic diameter 2.8, septal thickness 1.4, posterior wall thickness 1.2, left atrium 3.3, aortic root 3.1. SUMMARY: 1. Fair quality study. 2. Aortic valve is trileaflet and opens normally on 2-dimensional images with a peak gradient less than 10 mmHg. Mitral, tricuspid and pulmonic valves are without structural abnormality with trace mitral regurgitation and trace tricuspid regurgitation. Estimated systolic PA pressure by Doppler is 25-30 mmHg. The aortic root is normal size. 3. Normal left ventricular chamber size with mild concentric left ventricular hypertrophy is demonstrated. Estimated left ventricular ejection fraction 65%. No regional wall motion abnormalities are evident. Left atrium, right atrium, and right ventricle are normal in size with normal right ventricular systolic function. 4. No pericardial effusion. 5. Appearance of inferior vena cava suggests normal central venous pressure. CONCLUSION: 1. No significant valvular abnormality evident. 2. Mild concentric left hypertrophy with estimated left ventricular ejection fraction 65%. cc: MD Jeffry Solo MD
--- NOTE | 2016-11-10 20:51 | DISCHARGE SUMMARY ---
ADMISSION DATE: 11/09/2016 DISCHARGE DATE: 11/10/2016 ADMISSION DIAGNOSES: 1. Chest pain. 2. Hypertension. 3. Multiple sclerosis. DISCHARGE DIAGNOSES: 1. Chest pain resolved. 2. Myocardial infarction was ruled out, negative cardiac enzymes, stress test normal. 3. Hypertension resolved. Did not received dose of Lopressor. 4. Multiple sclerosis controlled. CONSULTATIONS: Cardiology, Albin Dumont MD. PROCEDURES: Myocardial perfusion scan on 11/10/2016. Good aerobic capacity, target heart rate achieved, clinically negative for chest pain. Electrocardiographically nondiagnostic due to baseline ST and T wave abnormality, normal exercise imaging. EKG normal sinus rhythm, rate 76. HOSPITAL COURSE: Mr. Jose Luis Nash is a 46-year-old, male with no significant medical history except for multiple sclerosis, who came in with chest pain on 11/09/2016. 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 He had been having similar symptoms for a week prior to admission but it was more intense on admission. Further workup revealed negative cardiac enzymes. He was started on aspirin. Cardiac stress test was negative. He improved with pain medication using morphine and now pain has resolved. He is deemed appropriate for discharge per Cardiology standpoint. DISCHARGE LAB DATA: White blood cells 15,000, hemoglobin 15, hematocrit 44, platelet count 143,000. Sodium 140, potassium 4.4, BUN 13, creatinine 0.8, glucose 92, CK 110, troponin less than 0.01, triglycerides 147, cholesterol 160, LDL 118, HDL 30. Urine drug screen was positive for cannabinoids and opiates but he had received morphine in the ER. IMAGING: Chest x-ray with no acute findings. Abdominal ultrasound: No acute disease. Myocardial perfusion scan was negative. DISCHARGE DIET: Regular. DISCHARGE VITAL SIGNS: Temperature 97.5 degrees, heart rate 72, respiratory rate 19, blood pressure 124/77 with a saturation of 99% on room air. DISCHARGE DISPOSITION: Home with self-care. DISCHARGE INSTRUCTIONS: 1. Self-care. 2. Report to ER if symptoms return. Dictated by AURELIO Bain for Molina Han MD cc: AURELIO Bain MD
== END 2016-11-10 18:53 | disposition home or self-care (01) ==
LOC: P.ED 09:12 → INTOOBSV 09:13 → SUATTDRO 09:13 → P.EDIPHOLD 09:13 → 3N 15:38
PROVIDERS: ATTEND Internal Medicine